=== PATIENT | male | born 1965 | race African-American/Black ===

== ENCOUNTER 2016-12-18 11:31 | Emergency (ER) | payer OTHER ==
[~2016-12-18] VITALS: Ht 193 cm; Wt 89.0 kg
[~2016-12-18 11:31] MED LIST: ASPI81CH7 CHEW; EPIN1INJ21 IV PUSH; EPIN1INJ21 SQ; HYDR-3580 PO; LEVA500T PO; LEVEMIR SQ; LISI10TA3 PO; NOVOINJ3 SQ; SOLU250I IV PUSH; VIBA750I IV
[2016-12-18 11:33] VITALS: BP 128/70; PULSE 89; RESP 18; TEMP 98.5; O2SAT 98
[2016-12-18] MEDS ORDERED: ONDANSETRON HCL 4 MG/2 ML VIAL IVP ONE (11:45)
[2016-12-18] MEDS ORDERED: SODIUM CHLOR 0.9% 1000 ML INJ 1,000 ML IV SCH (11:45)
[2016-12-18] MEDS ORDERED: KETOROLAC TROMETHAMINE 30 MG/ML (IVP) VIAL IVP ONE (11:45)
[2016-12-18] MEDS ORDERED: LEVEMIR SQ (11:46)
[2016-12-18 12:10] LABS: AUTOMATED NEUTROPHIL # 12.2 TH/MM3 (1.8-7.7); BASOPHIL % 0.3 % (0.0-2.0); EOSINOPHIL # 0.1 TH/MM3 (0-0.4); EOSINOPHIL % 0.4 % (0.0-4.0); HEMATOCRIT 30.6 % (39.0-51.0); HEMO FLAGS DIFF FINAL; LYMPH % 4.6 % (9.0-44.0); LYMPHOCYTE # 0.6 TH/MM3 (1.0-4.8); MEAN CELL VOLUME 93.5 FL (80.0-100.0); MEAN CORPUSCULAR HEMOGLOBIN 31.6 PG (27.0-34.0); MEAN CORPUSCULAR HGB CONC 33.8 % (32.0-36.0); MONO % 4.1 % (0.0-8.0); NEUT % 90.6 % (16.0-70.0); PLATELET COUNT 252 TH/MM3 (150-450); RED BLOOD COUNT 3.27 MIL/MM3 (4.50-5.90); RED CELL DISTRIBUTION WIDTH 14.5 % (11.6-17.2); WHITE BLOOD COUNT 13.4 TH/MM3 (4.0-11.0)
[2016-12-18 12:22] LABS: PROTHROMBIN TIME - PATIENT 10.8 SEC (9.8-11.6)
[2016-12-18 12:23] LABS: APTT (PATIENT) 27.3 SEC (24.3-30.1)
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
[2016-12-18 12:35] LABS: ANION GAP 9 MEQ/L (5-15); AST (GOT) 27 U/L (15-37); BLOOD UREA NITROGEN 19 MG/DL (7-18); CHLORIDE 97 MEQ/L (98-107); GLOMERULAR FILTRATION RATE 90 ML/MIN (>89); MAGNESIUM 1.8 MG/DL (1.5-2.5); POTASSIUM 3.9 MEQ/L (3.5-5.1); SODIUM (NA) 134 MEQ/L (136-145)
[2016-12-18 12:37] LABS: ALKALINE PHOSPHATASE 128 U/L (45-117); ALT (GPT) 28 U/L (12-78); TOTAL BILIRUBIN ADULT 0.8 MG/DL (0.2-1.0)
[2016-12-18 13:15] VITALS: BP 122/81; PULSE 86; RESP 17; O2SAT 100
--- NOTE | 2016-12-18 13:24 | EKG ---
Date Performed: 12/18/2016 Time Performed: 11:54:19 PTAGE: 51 years EKG: Sinus rhythm POSSIBLE LEFT ATRIAL ENLARGEMENT RIGHT BUNDLE BRANCH BLOCK ABNORMAL ECG PREVIOUS TRACING : 09/27/2016 18.00 No significant change from previous tracing noted. DOCTOR: Manny Garland Interpretating Date/Time 12/18/2016 13:23:25
[2016-12-18 13:30] VITALS: BP 118/84; PULSE 89; RESP 17; TEMP 97.8; O2SAT 99
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
[2016-12-18 13:43] LABS: BLOOD, URINE NEG (NEG); COMMENT (UR) CULT NOT INDICATED; CULTURE IF INDICATED CULT NOT INDICATED; GLUCOSE,URINE TRACE mg/dL (NEG); KETONE, URINE 10 mg/dL (NEG); MUCUS URINE FEW /lpf (OCC); NITRITE,URINE NEG (NEG); SQUAMOUS EPITHELIAL CELL URINE 2 /hpf (0-5); URINE COLOR YELLOW (YELLW/STRAW)
[2016-12-18] MEDS ORDERED: IOHEXOL 350 MG/ML 10 ML VIAL (for RAD DIAG) IV ONE (14:25)
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
[2016-12-18] MEDS ORDERED: BACT800T5 PO (15:04)
[2016-12-18] MEDS ORDERED: ZOFR4TAB PO (15:04)
[2016-12-18] MEDS ORDERED: DICL75TA PO (15:04)
[2016-12-18 15:18] VITALS: BP 120/71; TEMP 97.8
== END 2016-12-18 15:19 | disposition home or self-care (01) ==
LOC: NEPE 11:31
DX: R59.0 Localized enlarged lymph nodes (principal); L03.116 Cellulitis of left lower limb; M79.605 Pain in left leg; I10 Essential (primary) hypertension; F17.200 Nicotine dependence, unspecified, uncomplicated; R94.31 Abnormal electrocardiogram [ECG] [EKG]; E10.9 Type 1 diabetes mellitus without complications; Z79.4 Long term (current) use of insulin
CPT/HCPCS: 74177; 76882; 80053; 81001; 83690; 83735; 84484; 85025; 85610; 85730; 87040; 93005; 93971; 96361; 96374; 96375; 99285; J1885; J2405; J7030; Q9967

== ENCOUNTER 2017-09-29 16:25 | Emergency (ER) | payer SELFPAY ==
[~2017-09-29] VITALS: Ht 198.1 cm; Wt 81.5 kg
[~2017-09-29 16:25] MED LIST changes: +BACT800T5 PO; +DICL75TA PO; -EPIN1INJ21 IV PUSH; -EPIN1INJ21 SQ; -HYDR-3580 PO; -LEVA500T PO; -NOVOINJ3 SQ; -SOLU250I IV PUSH; -VIBA750I IV; +ZOFR4TAB PO
[2017-09-29 16:26] VITALS: BP 119/69; PULSE 86; RESP 18; TEMP 99.3; O2SAT 98
[2017-09-29] MEDS ORDERED: SODIUM CHLOR 0.9% 1000 ML INJ 1,000 ML IV SCH ×2 (17:40→20:00)
[2017-09-29] MEDS ORDERED: MORPHINE SULFATE 2 MG/ML INJ IV PUSH ONE (17:45)
[2017-09-29] MEDS ORDERED: VANCOMYCIN INJ 1,000 MG in SODIUM CHLOR 0.9% 250 ML INJ 250 ML IV ONE (17:45)
[2017-09-29 18:28] LABS: AUTOMATED NEUTROPHIL # 7.7 TH/MM3 (1.8-7.7); BASOPHIL % 0.3 % (0.0-2.0); EOSINOPHIL % 0.2 % (0.0-4.0); HEMATOCRIT 36.5 % (39.0-51.0); HEMO FLAGS DIFF FINAL; LYMPH % 15.1 % (9.0-44.0); LYMPHOCYTE # 1.5 TH/MM3 (1.0-4.8); MEAN CELL VOLUME 94.4 FL (80.0-100.0); MEAN CORPUSCULAR HEMOGLOBIN 31.6 PG (27.0-34.0); MEAN CORPUSCULAR HGB CONC 33.5 % (32.0-36.0); MONO % 6.9 % (0.0-8.0); NEUT % 77.5 % (16.0-70.0); PLATELET COUNT 249 TH/MM3 (150-450); RED BLOOD COUNT 3.87 MIL/MM3 (4.50-5.90); RED CELL DISTRIBUTION WIDTH 13.4 % (11.6-17.2); WHITE BLOOD COUNT 9.9 TH/MM3 (4.0-11.0)
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
--- NOTE | 2017-09-29 18:48 | PD ---
Data Data Last Documented VS Vital Signs Date Time Temp Pulse Resp B/P (MAP) Pulse Ox O2 Delivery O2 Flow Rate FiO2 09/29/17 16:26 99.3 86 18 119/69 (86) 98 Room Air Orders Orders Complete Blood Count With Diff (09/29/17 17:40) Basic Metabolic Panel (Bmp) (09/29/17 17:40) Prothrombin Time / Inr (Pt) (09/29/17 17:40) Act Partial Throm Time (Ptt) (09/29/17 17:40) Blood Culture (09/29/17 17:40) C-Reactive Protein (Crp) (09/29/17 17:40) Magnesium (Mg) (09/29/17 17:40) Wound Culture And Gram Stain (09/29/17 17:40) Iv Access Insert/Monitor (09/29/17 17:40) Vancomycin Inj (Vancomycin Inj) (09/29/17 17:45) Morphine Inj (Morphine Inj) (09/29/17 17:45) Lactic Acid Sepsis Protocol (09/29/17 17:40) Sodium Chlor 0.9% 1000 Ml Inj (Ns 1000 M (09/29/17 17:40) Foot, Complete ([id number]) (09/29/17 ) Labs Laboratory Tests Test 09/29/17 16:00 09/29/17 18:00 White Blood Count 9.9 TH/MM3 Red Blood Count 3.87 MIL/MM3 Hemoglobin 12.2 GM/DL Hematocrit 36.5 % Mean Corpuscular Volume 94.4 FL Mean Corpuscular Hemoglobin 31.6 PG Mean Corpuscular Hemoglobin Concent 33.5 % Red Cell Distribution Width 13.4 % Platelet Count 249 TH/MM3 Mean Platelet Volume 9.0 FL Neutrophils (%) (Auto) 77.5 % Lymphocytes (%) (Auto) 15.1 % Monocytes (%) (Auto) 6.9 % Eosinophils (%) (Auto) 0.2 % Basophils (%) (Auto) 0.3 % Neutrophils # (Auto) 7.7 TH/MM3 Lymphocytes # (Auto) 1.5 TH/MM3 Monocytes # (Auto) 0.7 TH/MM3 Eosinophils # (Auto) 0.0 TH/MM3 Basophils # (Auto) 0.0 TH/MM3 CBC Comment DIFF FINAL Differential Comment Lactic Acid Level 1.7 mmol/L MDM Supervised Visit with ROZINA: Yes Narrative Course The history, exam, and medical decision-making in the associated mid-level provider note were completed with my assistance. I reviewed and agree with the findings presented. I attest that I had a [id number] encounter with the patient on the same day, and personally performed and documented my assessment and findings in the medical record. *My assessment and Findings: 51-year-old man, history diabetes, diabetic ulcer on his left foot. Wound is fairly deep. Denies systemic symptoms. Suspect deep infection or osteomyelitis. We'll check labs, x-ray, likely admission. Marcin Johnston MD Sep 29, 2017 18:48
[2017-09-29 19:00] LABS: BICARBONATE 24.6 MEQ/L (21.0-32.0); MAGNESIUM 1.8 MG/DL (1.5-2.5); POTASSIUM 4.4 MEQ/L (3.5-5.1)
[2017-09-29] MEDS ORDERED: PIPERACIL-TAZO 4.5 GM PREMIX 100 ML IV ONE (19:00)
[2017-09-29] MEDS ORDERED: INSULIN HUMAN REGULAR 1,000 UNITS/10 ML VIAL SQ ONE (19:15)
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
[2017-09-29] MEDS ORDERED: SODIUM CHLORIDE 0.9% FLUSH 10 ML FLUSH IV FLUSH PRN (19:45)
[2017-09-29] MEDS ORDERED: ACETAMINOPHEN 325 MG TAB PO PRN (19:45)
[2017-09-29] MEDS ORDERED: Vancomycin Consult Pharmacy 1 EA OTHER SCH (19:45)
[2017-09-29] MEDS ORDERED: SENNOSIDES 8.6 MG TAB PO PRN (19:45)
[2017-09-29] MEDS ORDERED: ONDANSETRON HCL 4 MG/2 ML VIAL IVP PRN (19:45)
[2017-09-29] MEDS ORDERED: BISACODYL 10 MG SUPP RECTAL PRN (19:45)
[2017-09-29] MEDS ORDERED: GLUCAGON 1 MG/ML VIAL OTHER PRN (19:45)
[2017-09-29] MEDS ORDERED: NALOXONE HCL 0.4 MG/ML AMP IV PUSH PRN (19:45)
[2017-09-29] MEDS ORDERED: LACTULOSE SYRUP 20 GM/30 ML CUP PO PRN (19:45)
[2017-09-29] MEDS ORDERED: DEXTROSE 50% IN WATER 50 ML VIAL(D50) IV PUSH PRN (19:45)
[2017-09-29] MEDS ORDERED: MAGNESIUM HYDROXIDE SUSP 30 ML CUP PO PRN (19:45)
[2017-09-29 20:17] VITALS: BP 113/65; PULSE 54; RESP 18; O2SAT 100
[2017-09-29] MEDS ORDERED: INSULIN ASPART SUPPLEMENTAL SCALE SQ SCH (21:00)
[2017-09-29] MEDS ORDERED: SODIUM CHLORIDE 0.9% FLUSH 10 ML FLUSH IV FLUSH SCH (21:00)
[2017-09-29] MEDS ORDERED: PHARMACY ORDERED LAB ONE (21:00)
[2017-09-29] MEDS ORDERED: INSULIN DETEMIR 100 UNITS/ML VIAL SQ SCH (21:00)
[2017-09-29] MEDS ORDERED: DOCUSATE SODIUM 50 MG/SENNA 8.6 MG TAB PO SCH (21:00)
[2017-09-30] MEDS ORDERED: PIPERACIL-TAZO 3.375 GM PREMIX 50 ML IV SCH (03:00)
[2017-09-30] MEDS ORDERED: VANCOMYCIN INJ 1,500 MG in SODIUM CHLORID 0.9% 500 ML INJ 500 ML IV SCH (06:00)
[2017-09-30] MEDS ORDERED: VANCOMYCIN INJ 1,000 MG in SODIUM CHLOR 0.9% 250 ML INJ 250 ML IV SCH (06:00)
[2017-09-30] MEDS ORDERED: LISINOPRIL 10 MG TAB PO SCH (09:00)
[2017-10-01] MEDS ORDERED: PHARMACY ORDERED LAB ONE (17:45)
== END 2017-09-29 21:45 | disposition left against medical advice (07) ==
LOC: NEPE 16:25 → NEDH 19:30 → UNDOADMIN 19:30 → NEPE 21:45
DX: E08.621 Diabetes mellitus due to underlying condition with foot ulcer (principal); L97.422 Non-pressure chronic ulcer of left heel and midfoot with fat layer exposed; M86.9 Osteomyelitis, unspecified; A49.02 Methicillin resistant Staphylococcus aureus infection, unspecified site; I10 Essential (primary) hypertension; F17.200 Nicotine dependence, unspecified, uncomplicated; Z79.82 Long term (current) use of aspirin; Z79.4 Long term (current) use of insulin; Z89.612 Acquired absence of left leg above knee
CPT/HCPCS: 73630; 80048; 83605; 83735; 85025; 86140; 86403; 87040; 87070; 87186; 96361; 96374; 96375; 99285; J1815; J2270; J2543; J3370; J7030; J7050; 87205